=== PATIENT | male | born 1960 | race Two or more races ===

== ENCOUNTER → 2017-10-06 | Emergency (ER) | payer OTHER ==
[~2017-10-06] MED LIST: AMLODIPINE BESY10 MG PO; AVALIDE 300-12.1 TAB PO; AVAPRO300 MG PO; BICILLIN C1.2 MMU/2 IM; CLONAZEPAM2 MG; CLONAZEPAM2 MG PO; CYMBALTA30 MG PO; CYMBALTA60 MG PO; DEPAKOTE ER500 MG PO; DULERA; ECOTRIN325 MG PO; ERY-TAB500 MG PO; GABAPENTIN800 MG PO; HUMALOG100 UNIT/1; HYDROCHLOROTHIA25 MG PO; JANUVIA100 MG PO; LAMICTAL100 MG PO; LANTUS SOL100 UNIT/1; LATUDA PO; LEVAQUIN500 MG PO; LEVAQUIN750 MG PO; LIPITOR20 MG PO; METFORMIN HCL1000 MG PO; NEURONTIN300 MG; NITROTAB0.3 MG; NORVASC5 MG; PERCOCET 5/3251 TAB PO; PLAVIX75 MG PO; PROTONIX40 MG PO; SEROQUEL200 MG PO; SEROQUEL50 MG PO; TESSALON PERLE100 M1 PO; TRILEPTAL300 MG PO; TRILEPTAL600 MG PO; TUSSI PRES-B L120 M1 PO; VISTARIL50 MG PO; XENADERM OINTME30 GM TP; ZEGERID 40 MG C1 CAP PO; ZETIA10 MG PO; ZOCOR20 MG
== END | disposition home or self-care (01) ==
LOC: ER 14:58
DX: E11.65 Type 2 diabetes mellitus with hyperglycemia (principal)

== ENCOUNTER 2018-01-02 16:55 | Emergency (ER) | payer OTHER ==
[~2018-01-02] VITALS: Ht 180.3 cm; Wt 104.3 kg
[2018-01-02] MEDS ORDERED: HUMULIN R500 UNIT/2 (17:09)
== END 2018-01-02 23:57 | disposition home or self-care (01) ==
LOC: ER 16:55
DX: E11.65 Type 2 diabetes mellitus with hyperglycemia (principal)

== ENCOUNTER 2018-01-18 10:28 | Outpatient (CLI) | payer OTHER ==
[~2018-01-18 10:28] MED LIST changes: +HUMULIN R500 UNIT/2
== END 2018-01-18 10:40 | disposition home or self-care (01) ==
LOC: MRI 10:28
DX: D32.0 Benign neoplasm of cerebral meninges (principal); I67.1 Cerebral aneurysm, nonruptured
CPT/HCPCS: 70553; A9579; 70552

== ENCOUNTER 2018-03-19 18:28 | Emergency (ER) | payer OTHER ==
[~2018-03-19] VITALS: Ht 180.3 cm; Wt 104.3 kg
[2018-03-19] MEDS ORDERED: PNEU16DI2 (18:45)
[2018-03-19] MEDS ORDERED: CARDURA XL8 MG (18:45)
== END 2018-03-20 21:50 ==
LOC: ER 18:28
DX: E11.65 Type 2 diabetes mellitus with hyperglycemia (principal); H53.8 Other visual disturbances

== ENCOUNTER 2018-05-17 16:46 | Emergency (ER) | payer OTHER ==
[~2018-05-17] VITALS: Ht 180.3 cm; Wt 104.3 kg
[~2018-05-17 16:46] MED LIST changes: +CARDURA XL8 MG; +PNEU16DI2
== END 2018-05-17 19:39 | disposition home or self-care (01) ==
LOC: ER 16:46
DX: G51.0 Bell's palsy (principal); E11.65 Type 2 diabetes mellitus with hyperglycemia

== ENCOUNTER 2018-06-18 18:39 | Emergency (ER) | payer OTHER ==
[~2018-06-18] VITALS: Ht 180.3 cm; Wt 104.8 kg
== END 2018-06-18 22:31 | disposition home or self-care (01) ==
LOC: ER 18:39
DX: G51.0 Bell's palsy (principal)

== ENCOUNTER 2018-06-23 14:10 | Outpatient (CLI) | payer OTHER | END 2018-06-23 14:18 | disposition home or self-care (01) | LOC: MRI 14:10 | DX: R51 Headache (principal); G51.0 Bell's palsy | CPT/HCPCS: 70551 ==

== ENCOUNTER → 2018-06-24 | Emergency (ER) | payer OTHER | END | disposition left against medical advice (07) | LOC: ER 19:22 | DX: Z53.20 Procedure and treatment not carried out because of patient's decision for unspecified reasons (principal) ==

== ENCOUNTER → 2018-07-31 | Emergency (ER) | payer OTHER ==
[~2018-07-31] VITALS: Ht 180.3 cm; Wt 104.3 kg
== END | disposition home or self-care (01) ==
LOC: ER 16:20
DX: G51.0 Bell's palsy (principal)
CPT/HCPCS: 70551

== ENCOUNTER 2018-10-21 17:26 | Emergency (ER) | payer OTHER ==
[~2018-10-21] VITALS: Ht 177.8 cm; Wt 104.3 kg
== END 2018-10-21 19:06 | disposition home or self-care (01) ==
LOC: ER 17:26
DX: M54.5 Low back pain (principal)

== ENCOUNTER 2018-12-26 19:49 | Emergency (ER) | payer OTHER ==
[~2018-12-26] VITALS: Ht 180.3 cm; Wt 111.1 kg
[2018-12-26] MEDS ORDERED: INVEGA9 MG (20:11)
[2018-12-26] MEDS ORDERED: INVEGA SUS234 MG/1.5 (20:11)
[2018-12-26] MEDS ORDERED: ULTRACET PO (22:48)
== END 2018-12-26 23:31 | disposition home or self-care (01) ==
LOC: ER 19:49
DX: N39.0 Urinary tract infection, site not specified (principal); R10.31 Right lower quadrant pain

== ENCOUNTER 2019-01-06 17:07 | Emergency (ER) | payer OTHER ==
[~2019-01-06] VITALS: Ht 180.3 cm; Wt 107.5 kg
[~2019-01-06 17:07] MED LIST changes: +INVEGA SUS234 MG/1.5; +INVEGA9 MG; +ULTRACET PO
== END 2019-01-06 22:18 | disposition home or self-care (01) ==
LOC: ER 17:07
DX: N20.0 Calculus of kidney (principal); N28.1 Cyst of kidney, acquired; K57.90 Diverticulosis of intestine, part unspecified, without perforation or abscess without bleeding; E11.9 Type 2 diabetes mellitus without complications

== ENCOUNTER 2019-01-13 18:03 | Emergency (ER) | payer OTHER ==
[~2019-01-13] VITALS: Ht 180.3 cm; Wt 107.5 kg
== END 2019-01-14 12:48 | disposition left against medical advice (07) ==
LOC: ER 18:03
DX: R07.89 Other chest pain (principal); E11.65 Type 2 diabetes mellitus with hyperglycemia; F31.11 Bipolar disorder, current episode manic without psychotic features, mild; F32.4 Major depressive disorder, single episode, in partial remission

== ENCOUNTER 2019-02-19 16:11 | Emergency (ER) | payer OTHER ==
[~2019-02-19] VITALS: Ht 180.3 cm; Wt 107.5 kg
[2019-02-19] MEDS ORDERED: ORPHENADRINE C100 MG PO (18:21)
[2019-02-19] MEDS ORDERED: KETO10TA2 PO (18:21)
== END 2019-02-19 18:35 ==
LOC: ER 16:11
DX: M54.2 Cervicalgia (principal); M54.5 Low back pain; M62.830 Muscle spasm of back

== ENCOUNTER 2019-03-28 13:48 | Outpatient (CLI) | payer OTHER ==
[~2019-03-28 13:48] MED LIST changes: +KETO10TA2 PO; +ORPHENADRINE C100 MG PO
== END 2019-03-28 13:52 | disposition home or self-care (01) ==
LOC: MRI 13:48
DX: M54.5 Low back pain (principal)
CPT/HCPCS: 72148

== ENCOUNTER → 2020-05-22 | Outpatient (CLI) | payer OTHER | END | disposition home or self-care (01) | LOC: TOM 11:01 | DX: N20.0 Calculus of kidney (principal); R39.89 Other symptoms and signs involving the genitourinary system; R32 Unspecified urinary incontinence; Z90.79 Acquired absence of other genital organ(s) ==

== ENCOUNTER 2020-05-24 08:50 | Outpatient (CLI) | payer OTHER | END 2020-05-24 08:52 | disposition home or self-care (01) | LOC: NUCLEAR 08:50 | PROVIDERS: ATTEND Internal Medicine Cardiovascular Disease | DX: I20.1 Angina pectoris with documented spasm (principal) | CPT/HCPCS: 78452; 93017; A9500; J1250 ==

== ENCOUNTER 2020-07-18 08:32 | Outpatient (CLI) | payer OTHER | END 2020-07-18 08:37 | disposition home or self-care (01) | LOC: SONOGRAMA 08:32 → MAMO-SONO 08:45 | PROVIDERS: ATTEND Internal Medicine | DX: N40.1 Benign prostatic hyperplasia with lower urinary tract symptoms (principal) ==

== ENCOUNTER 2020-08-08 09:36 | Outpatient (CLI) | payer OTHER | END 2020-08-08 09:44 | disposition home or self-care (01) | LOC: SONOGRAMA 09:36 → MAMO-SONO 10:15 | PROVIDERS: ATTEND Internal Medicine Gastroenterology | DX: R16.0 Hepatomegaly, not elsewhere classified (principal); R10.13 Epigastric pain ==

== ENCOUNTER 2020-08-31 13:12 | Emergency (ER) | payer OTHER ==
[~2020-08-31] VITALS: Ht 180.3 cm; Wt 108.9 kg
[2020-08-31] MEDS ORDERED: NOVOLIN R100 UNIT/1 IM (13:21)
[2020-08-31] MEDS ORDERED: TERAZOSIN HCL2 M1 PO (13:21)
[2020-08-31] MEDS ORDERED: INVOKANA300 MG PO (13:22)
[2020-08-31] MEDS ORDERED: FENOFIBRATE160 MG PO (13:22)
[2020-08-31] MEDS ORDERED: ISOSORBIDE MONO30 M2 PO (13:22)
[2020-08-31] MEDS ORDERED: ECOTRIN81 MG PO (13:24)
[2020-08-31] MEDS ORDERED: QUETIAPINE FUM300 MG PO (13:26)
[2020-08-31] MEDS ORDERED: LAMICTAL100 MG PO (13:27)
[2020-08-31] MEDS ORDERED: OXCARBAZEPINE150 MG PO (13:27)
[2020-08-31] MEDS ORDERED: TRAZODONE HCL150 MG PO (13:27)
== END 2020-08-31 19:48 | disposition home or self-care (01) ==
LOC: ER 13:12 → CPU-OBS 13:20 → ER 13:20
DX: R07.89 Other chest pain (principal); M72.2 Plantar fascial fibromatosis; M21.6X2 Other acquired deformities of left foot; M21.6X1 Other acquired deformities of right foot

== ENCOUNTER 2020-11-18 10:23 | Outpatient (CLI) | payer OTHER ==
[~2020-11-18 10:23] MED LIST changes: +ECOTRIN81 MG PO; +FENOFIBRATE160 MG PO; +INVOKANA300 MG PO; +ISOSORBIDE MONO30 M2 PO; +NOVOLIN R100 UNIT/1 IM; +OXCARBAZEPINE150 MG PO; +QUETIAPINE FUM300 MG PO; +TERAZOSIN HCL2 M1 PO; +TRAZODONE HCL150 MG PO
== END 2020-11-18 10:26 | disposition home or self-care (01) ==
LOC: SONOGRAMA 10:23 → MAMO-SONO 10:45
PROVIDERS: ATTEND Internal Medicine Gastroenterology
DX: R10.13 Epigastric pain (principal)

== ENCOUNTER 2021-05-12 14:00 | Emergency (ER) | payer OTHER ==
[~2021-05-12] VITALS: Ht 177.8 cm; Wt 104.3 kg
[2021-05-12] MEDS ORDERED: LANTUS SOL100 UNIT/1 SQ (14:24)
[2021-05-12] MEDS ORDERED: PEPCID AC20 MG PO (20:45)
[2021-05-12] MEDS ORDERED: DICY20TA PO (20:45)
== END 2021-05-12 21:19 | disposition home or self-care (01) ==
LOC: ER 14:00
DX: R10.31 Right lower quadrant pain (principal); R10.13 Epigastric pain

== ENCOUNTER 2021-05-31 17:52 | Emergency (ER) | payer OTHER ==
[~2021-05-31] VITALS: Ht 162.6 cm; Wt 111.1 kg
[~2021-05-31 17:52] MED LIST changes: +DICY20TA PO; +LANTUS SOL100 UNIT/1 SQ; +PEPCID AC20 MG PO
== END 2021-05-31 19:11 | disposition home or self-care (01) ==
LOC: ER 17:52
DX: M77.51 Other enthesopathy of right foot and ankle (principal)

== ENCOUNTER 2021-08-18 10:04 | Outpatient (CLI) | payer OTHER | END 2021-08-18 10:07 | disposition home or self-care (01) | LOC: SONOGRAMA 10:04 | PROVIDERS: ATTEND Internal Medicine | DX: R10.30 Lower abdominal pain, unspecified (principal) ==

== ENCOUNTER 2021-08-27 23:18 | Emergency (ER) | payer OTHER ==
[~2021-08-27] VITALS: Ht 177.8 cm; Wt 104.3 kg
== END 2021-08-28 02:09 | disposition home or self-care (01) ==
LOC: ER 23:18
DX: R10.84 Generalized abdominal pain (principal)

== ENCOUNTER 2021-10-30 17:43 | Emergency (ER) | payer OTHER ==
[~2021-10-30] VITALS: Ht 177.8 cm; Wt 108.9 kg
== END 2021-10-30 21:58 | disposition home or self-care (01) ==
LOC: ER 17:43
DX: G25.70 Drug induced movement disorder, unspecified (principal)

== ENCOUNTER 2022-03-25 16:51 | Emergency (ER) | payer OTHER ==
[~2022-03-25] VITALS: Ht 175.3 cm; Wt 113.4 kg
== END 2022-03-25 20:08 | disposition home or self-care (01) ==
LOC: ER 16:51
DX: F41.9 Anxiety disorder, unspecified (principal); F32.9 Major depressive disorder, single episode, unspecified; F20.9 Schizophrenia, unspecified

== ENCOUNTER 2022-05-07 11:20 | Outpatient (CLI) | payer OTHER | END 2022-05-07 11:25 | disposition home or self-care (01) | LOC: RAD 11:20 | PROVIDERS: ATTEND Internal Medicine Pulmonary Disease | DX: J43.2 Centrilobular emphysema (principal); G47.33 Obstructive sleep apnea (adult) (pediatric); J96.10 Chronic respiratory failure, unspecified whether with hypoxia or hypercapnia ==

== ENCOUNTER 2022-06-24 15:52 | Emergency (ER) | payer OTHER ==
[~2022-06-24] VITALS: Ht 157.5 cm; Wt 102.1 kg
[2022-06-24] MEDS ORDERED: ZITHROMAX500 MG PO (21:16)
[2022-06-24] MEDS ORDERED: OSEL75CA PO (21:16)
[2022-06-24] MEDS ORDERED: XOPENEX0.63 MG/3 IH (21:17)
[2022-06-24] MEDS ORDERED: TUSNEL LIQUID178 ML PO (21:17)
== END 2022-06-24 21:23 | disposition home or self-care (01) ==
LOC: ER 15:52
DX: J06.9 Acute upper respiratory infection, unspecified (principal); Z20.822 Contact with and (suspected) exposure to COVID-19

== ENCOUNTER 2023-02-04 13:07 | Emergency (ER) | payer OTHER ==
[~2023-02-04] VITALS: Ht 180.3 cm; Wt 99.8 kg
[~2023-02-04 13:07] MED LIST changes: +OSEL75CA PO; +TUSNEL LIQUID178 ML PO; +WELLBUTRIN XL300 MG PO; +XOPENEX0.63 MG/3 IH; +ZITHROMAX500 MG PO
[2023-02-04] MEDS ORDERED: PAXLOVID 300-11 EACH PO (13:53)
[2023-02-04] MEDS ORDERED: TUSNEL LIQUID178 ML PO (13:53)
[2023-02-04] MEDS ORDERED: DOLOGEN CAPLET1 EACH PO (13:53)
== END 2023-02-04 14:04 | disposition home or self-care (01) ==
LOC: ER 13:07
DX: U07.1 COVID-19 (principal); E11.9 Type 2 diabetes mellitus without complications; Z79.4 Long term (current) use of insulin; I10 Essential (primary) hypertension; J44.9 Chronic obstructive pulmonary disease, unspecified

== ENCOUNTER 2024-05-15 14:21 | Outpatient (CLI) | payer OTHER ==
[~2024-05-15 14:21] MED LIST changes: +DOLOGEN CAPLET1 EACH PO; +PAXLOVID 300-11 EACH PO
== END 2024-05-15 14:30 | disposition home or self-care (01) ==
LOC: SONOGRAMA 14:21
PROVIDERS: ATTEND Internal Medicine
DX: E11.21 Type 2 diabetes mellitus with diabetic nephropathy (principal)

== ENCOUNTER 2024-12-18 12:06 | Outpatient (CLI) | payer OTHER | END 2024-12-18 12:08 | disposition home or self-care (01) | LOC: TOM 12:06 | DX: J84.9 Interstitial pulmonary disease, unspecified (principal) ==

== ENCOUNTER 2025-02-27 09:02 | Outpatient (CLI) | payer OTHER | END 2025-02-27 09:06 | disposition home or self-care (01) | LOC: SONOGRAMA 09:02 | PROVIDERS: ATTEND Internal Medicine Endocrinology, Diabetes & Metabolism | DX: E04.1 Nontoxic single thyroid nodule (principal); R74.01 Elevation of levels of liver transaminase levels ==

== ENCOUNTER 2025-04-26 10:02 | Outpatient (CLI) | payer OTHER | END 2025-04-26 10:04 | disposition home or self-care (01) | LOC: SONOGRAMA 10:02 | PROVIDERS: ATTEND Specialist | DX: K57.81 Diverticulitis of intestine, part unspecified, with perforation and abscess with bleeding (principal) ==

== ENCOUNTER → 2025-08-01 | Emergency (ER) | payer OTHER ==
[~2025-08-01] VITALS: Ht 180.3 cm; Wt 95.3 kg
[~2025-08-01] MED LIST changes: +0.9 % SODIUM CHLORIDE 1,000 ML IV SCH; +DEXTROSE 5 %-0.45 % SOD CHLORD 1,000 ML IV SCH; +FAMOTIDINE/PF 20 MG/2 ML VIAL IV ONE; +FAMOTIDINE/PF 20 MG/2 ML VIAL ONE
[2025-08-01 14:01] LABS: BASO % 0.4 % (0.1-1.2); EOS # 0.06 (0.04-0.54); EOS % 0.9 % (0.7-7.0); LYMPH # 2.13 (1.18-3.74); LYMPH % 31.8 % (19.3-53.1); MEAN PLATELET VOLUME 9.80 fl (9.4-12.4); MONO # 0.54 (0.24-0.82); MONO % 8.1 % (4.7-12.5); NEUT # 3.89 (1.56-6.13); NEUT % 58.1 % (34.0-71.1); RED CELL DISTRIBUTION WIDTH 12.8 % (11.6-14.4)
[2025-08-01 14:08] LABS: ERYTHROCYTE SEDIMENTATION RATE 5 mm/hr (0-20)
[2025-08-01 14:26] LABS: ALT/SGPT 42.0 U/L (12-78); AST/SGOT 25.0 U/L (15-37); BILIRUBIN TOTAL 0.57 mg/dL (0.3-1.2); BUN CREA RATIO 16.0 (7.0-25.0); CREATININE SERUM 1.22 mg/dL (0.70-1.30); GFR 59.25; GLOBULINA 3.6 G/DL (2.4-3.5); GLUCOSE FASTING 122.0 mg/dL (65-100); OSMOLALITY SERUM 290.0 MOSM/KG (275-295)
[2025-08-01 14:27] LABS: INR 1.02
[2025-08-01 15:02] LABS: URINE BACTERIA 6.8 uL (0.0-1933); URINE EPITHELIAL CELLS 2.2 uL (0.0-38.8)
[2025-08-01 15:08] LABS: URINE APPEARANCE Clear; URINE BILIRRUBIN Negative (NEGATIVE); URINE BLOOD Negative; URINE COLOR Yellow; URINE KETONE Negative (NEGATIVE); URINE LEUKOCYTE Negative; URINE NITRATE Negative; URINE PROTEIN Negative (NEGATIVE); URINE UROBILINOGEN 0.2 E.U./dl
[2025-08-01 15:09] LABS: URINE CAST 0.00 uL (0.0-1.40); URINE GLUCOSE >=1000 MG/DL (NEGATIVE); URINE RBC 1.5 uL (0.0-20.8); URINE WBC 1.0 uL (0.0-23.2)
== END | disposition left against medical advice (07) ==
LOC: ER 11:25
PROVIDERS: Student in an Organized Health Care Education/Training Program
DX: N23 Unspecified renal colic (principal); I10 Essential (primary) hypertension; E11.9 Type 2 diabetes mellitus without complications; Z79.4 Long term (current) use of insulin
CPT/HCPCS: 36415; 96365; 99282; J7030